=== PATIENT | female | born 1980 | race Caucasian/White ===

== ENCOUNTER 2018-06-30 16:11 | Emergency (ER) | payer OTHER ==
[2018-06-30] MEDS: LIDOCAINE/MYLANTA 40 ML BTL PO (18:46)
[2018-06-30] MEDS: FAMOTIDINE 20 MG INJ IV (18:46)
[2018-06-30] MEDS: KETOROLAC 15 MG INJ IV (18:46)
[2018-06-30] MEDS: SOD CHLORIDE 0.9% 1,000 ML IV (18:47)
== END 2018-06-30 20:31 | disposition home or self-care (01) ==
LOC: E/R 16:11
DX: F41.9 Anxiety disorder, unspecified (principal); R07.9 Chest pain, unspecified; B34.9 Viral infection, unspecified; Z63.4 Disappearance and death of family member
CPT/HCPCS: 71045; 81025; 87400; 93005; 96374; 96375; 99285-25